=== PATIENT | female | born 1970 | race Asian ===

== ENCOUNTER 2019-11-20 11:26 | Emergency (ER) | payer MEDICAID, SELFPAY ==
--- NOTE | 2019-11-20 11:30 | DI.US_ITS ---
EXAM: US ABDOMEN LIMITED CLINICAL HISTORY: RUQ pain TECHNIQUE: Ultrasound performed using standard protocol. COMPARISON: No exams were available for comparison FINDINGS: The liver is slightly echogenic. There is a echogenicity lesion in the superior left lobe which is not well visualized due to location. There is no biliary dilatation. There is a prominent gallbladd er fold versus Phrygian cap. There is a question based stone versus adenomyosis in this area. There is no overall gallbladder wall thickening or tenderness. There is no right upper quadrant fluid. P ancreas was not ideally seen. The right kidney appears normal. IMPRESSION: Prominent gallbladder fold versus for Phrygian cap. Question of stone versus adenomyomatosis. No ev idence of acute cholecystitis. DATA REPOSITORY:
[2019-11-20 11:34] VITALS: BP 115/67; PULSE 67; RESP 18; TEMP 36.7; O2SAT 95
--- NOTE | 2019-11-20 12:02 | ED.GENADUL_ITS ---
Discharge Plan Disposition Patient Disposition: HOME Condition: Improving Discharge Details Chief Complaint: Abd Prob Clinical Impression: Biliary colic Primary Care Provider: Antonio Jon ED Provider: Philippe Cole Home Meds and New Rx's Prescriptions: No Action Multi For Her 18 mg iron-600 mcg-40 mcg Capsule 1 tab-cap PO DAILY RF: 0 Discharge Instructions Instructions: Abdominal Pain (ED) Additional Instructions: Liquid diet for 24 hours, then may begin a bland diet. Avoid fatty or fried foods. Return if he develop a fever, persistent abdominal pain or vomiting, or any other acute concerns. Medical Decision Making 49-year-old female presents from home with complaint of 2 weeks of right upper quadrant abdominal pain. No significant change with eating. She is not noted a fever no stool changes. Vital signs are normal. She is tender in the right upper quadrant of the abdomen. Differential diagnosis includes pancreatitis, biliary colic, cholecystitis. Patient IV access established, she declined analgesia, she is given fluid bolus and referred for laboratories and ultrasound. She does have a gallstone without evidence of acute cholecystitis or obstruction. Her labs are reassuring. Pain is improved. Consistent with biliary colic. 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 She requests that follow-up instructions be sent to her via email not phone. She understands return precautions to the ER. Lab Data Lab results reviewed: Yes I reviewed the patient's lab results. Labs: Laboratory Results - last 24 hr 11/20/19 11/20/19 11/20/19 12:05 12:20 12:20 WBC 4.29 L RBC 4.54 Hgb 13.7 Hct 41.5 MCV 91.4 MCH 30.2 MCHC 33.0 RDW 12.2 Plt Count 172 MPV 10.5 Immature Gran % 0.2 Neutrophils % 60.0 Lymphocytes % 32.6 Monocytes % 5.8 Eosinophils % 0.9 Basophils % 0.5 Absolute Neutrophils 2.57 Absolute Lymphocytes 1.40 Absolute Monocytes 0.25 Absolute Eosinophils 0.04 Absolute Basophils 0.02 Sodium 139 Potassium 4.5 Chloride 105 Carbon Dioxide 25.9 Anion Gap 8.1 BUN 16 Creatinine 0.66 Estimated GFR/1.73 m2 >= 60.00 Glucose 106 Calcium 8.9 Total Bilirubin 0.4 AST 25 ALT 36 Alkaline Phosphatase 68 Total Protein 7.5 Albumin 3.8 Lipase 190 Urine Color Yellow Urine Clarity Clear Urine pH 6.5 Ur Specific [place] 1.020 Urine Protein Negative Urine Ketones Negative Urine Blood Negative Urine Nitrite Negative Urine Bilirubin Negative Urine Urobilinogen 0.2 Ur Leukocyte Esterase Negative Urine Glucose Negative HPI General Mode of arrival: ambulatory . Date/Time Provider Initiated Documentation: 11/20/19 11:27 . Limitations to Documentation: no limitations . Information obtained by: patient and timber framer helper (Language line timber framer helper used) . History of Present Illness 49 year old F presents to the emergency department with the chief complaint of Right upper quadrant abdominal pain for 2 weeks., described as moderate, Quality is described as dull, and is localized to the abdomen and right. Patient reports no radiation. Patient started experiencing this hour(s) and it has been constant. No relieving factors improve symptom(s), No exacerbating factors reported . Patient notes denies fever/chills and nausea/vomiting. Patient did receive the following treatments prior to arrival, none Related Data Home Medications Medication Instructions Recorded Confirmed [id number]-[id number]-vit K 1 tab-cap PO DAILY 11/20/19 11/20/19 [Multi For Her] Allergies Allergy/AdvReac Type Severity Reaction Status Date / Time No Known Allergies Allergy Unverified 11/20/19 11:54 General Stated Complaint: Abd Prob MARCEL: 3 Review of Systems Narrative: See HPI. Patient denied fever, cough, change to bowel or bladder habits. Exam Narrative Exam Narrative: GEN: awake, alert, Pleasant, well groomed, interactive. HEAD: Normocephalic, atraumatic ENT: Mucous membranes moist, oropharynx unremarkable, External ear exam unremarkable EYES: PERRL, EOMI NECK: Full ROM, no ALICIA, no menigismus CHEST/RESP: Nontender, clear to auscultation bilateral, no wheeze/rhonchi/rales CARDIOVASCULAR: RRR, no murmur, rub amy. 2+ Rad pulse bilateral ABDOMEN: Soft, tender in the right upper quadrant, no mass. +Bowel sounds EXT: Full ROM, no edema, no rash Neuro: Grossly normal neurologic exam, conversant, interactive. Psych: Speech fluent, thoughts congruent, affect normal Course Vital Signs Vital signs: Vital Signs Temperature 36.7 C 11/20/19 11:34 Pulse 67 11/20/19 11:34 Respiratory Rate 18 11/20/19 11:34 Blood Pressure 115/67 11/20/19 11:34 Pulse Oximetry 95 11/20/19 11:34 Temperature 36.7 C 11/20/19 11:34 Temperature Source Temporal Artery Scan 11/20/19 11:34 Pulse 67 11/20/19 11:34 Respiratory Rate 18 11/20/19 11:34 Respiratory Effort Non-Labored 11/20/19 11:55 Blood Pressure 115/67 11/20/19 11:34 Blood Pressure Position Sitting 11/20/19 11:34 Pulse Oximetry 95 11/20/19 11:34 Oxygen Delivery Method Room Air 11/20/19 11:34 Oxygen Flow Rate 0 11/20/19 11:34
[2019-11-20 12:17] LABS: Bilirubin Negative (Negative); Blood Negative (Negative); Clarity Clear (Clear); Glucose Negative (Negative); Ketones Negative (Negative); Leukocyte Esterase Negative (Negative); Nitrite Negative (Negative); Urobilinogen 0.2 EU/dL (Up TO 0.2); pH 6.5 (5-8)
[2019-11-20] MEDS: Normal Saline 1,000 ML 125 ML IV (12:24)
[2019-11-20 12:30] LABS: Abs Immature Grans 0.01 k/cumm (0.0-0.09); Absolute Basophil Count 0.02 k/cumm (0.0-0.2); Absolute Eosinophil Count 0.04 k/cumm (0.0-0.7); Absolute Monocyte Count 0.25 k/cumm (0.11-0.7); Absolute Neutrophil Count 2.57 k/cumm (1.2-6.7); Basophils % 0.5; Eosinophils % 0.9; HCT 41.5 % (36.0-46.0); HGB 13.7 g/dL (12.0-15.5); Immature Grans % 0.2 %; Lymphocytes % 32.6; Mean Corpuscular Hemoglobin 30.2 pg (27.0-33.0); Mean Corpuscular Volume 91.4 fL (80-95); Mean Platelet Volume 10.5 fL (8.0-11.0); Monocytes % 5.8; Platelet Count 172 x1000/uL (130-400); RBC 4.54 m/cumm (4.00-5.20); RBC Distribution Width 12.2 % (11.7-14.6); White Blood Cell Count 4.29 k/cumm (4.4-10.8)
[2019-11-20 12:46] LABS: ALT 36 U/L (14-59); AST 25 U/L (15-37); Albumin 3.8 g/dL (3.4-5.0); Alkaline Phosphatase 68 U/L (46-116); Anion Gap 8.1 mmol/L (3-11); BUN 16 mg/dL (7-18); Bilirubin, Total 0.4 mg/dL (0.2-1.0); CO2 25.9 mmol/L (21.0-32.0); CREATININE 0.66 mg/dL (0.55-1.02); Calcium 8.9 mg/dL (8.5-10.1); Chloride 105 mmol/L (98-107); Glucose 106 mg/dL (74-106); Lipase 190 U/L (73-393); Potassium 4.5 mmol/L (3.5-5.1); Sodium 139 mmol/L (136-145); Total Protein 7.5 g/dL (6.4-8.2)
[2019-11-20 15:03] VITALS: BP 118/68; PULSE 58; RESP 16; TEMP 37; O2SAT 99
--- NOTE | 2019-11-20 15:12 | NUR.NOTE ---
Nursing Note: Referral faxed gen. surgery. Patient prefers Contact by email
== END 2019-11-20 15:02 | disposition home or self-care (01) ==
PROVIDERS: Emergency Provider Emergency Medicine; PCP Naturopath
DX: K80.50 Calculus of bile duct without cholangitis or cholecystitis without obstruction (principal)
CPT/HCPCS: 36415; 80053; 83690; 96360; 96361; 99284; 76705; 81003; 85025; 99283

== ENCOUNTER 2019-12-13 01:30 | Outpatient (CLI) | payer MEDICAID, SELFPAY ==
--- NOTE | 2019-12-13 06:30 | DI.NM_ITS ---
EXAM: NM HEPATOBILIARY CCK GRP CLINICAL HISTORY: RUQ pain,CHRONIC,R10.11,G89.29. TECHNIQUE: Injected dose: 4.8 mCi Tc-99 mebrofenin Initial dynamic images: 60 minutes Post-Gallbladder fillin.02 mcg/kg CCK intravenously over a 15min infusion. Addition images: 45 minute dynamic during CCK administration. COMPARISON: US US ABDOMEN LIMITED from 11/20/2019 FINDINGS: Normal hepatic transit time. Prompt excretion into the small bowel. Prompt excretion into the gallbladder. The gallbladder ejection fraction is 30 percent which is belo w the normal range of greater than 40 percent. IMPRESSION: 1. Low gallbladder ejection fraction of 30 percent. SNM guidelines: Gallbladder visualization should be present by 3 hours. Delayed qmhqaed-pj-shqkt larson sit beyond 60 min raises the suspicion for partial common bile duct (CBD) obstruction. Gallbladder ejection fraction <35% has a good correlation with acalculous disease (i.e., chronic acal culous cholecystitis, cystic duct syndrome, sphincter of Oddi disease).
[2019-12-13] MEDS: Sincalide 5 MCG VIAL 1 MCG IJ (11:39)
== END 2019-12-13 01:50 ==
PROVIDERS: PCP Naturopath; Visit Provider Surgery
DX: R10.11 Right upper quadrant pain (principal); G89.29 Other chronic pain; K82.8 Other specified diseases of gallbladder
CPT/HCPCS: 78227

== ENCOUNTER 2019-12-22 03:39 | Outpatient (CLI) | payer MEDICAID, SELFPAY ==
[2019-12-23 12:28] LABS: COVID-19 RT-PCR Result NEGATIVE (Negative)
== END 2019-12-22 03:59 ==
PROVIDERS: PCP Naturopath; Visit Provider Surgery
DX: Z11.59 Encounter for screening for other viral diseases (principal); Z01.818 Encounter for other preprocedural examination
CPT/HCPCS: U0003

== ENCOUNTER 2019-12-26 07:00 | Day surgery (SDC) | payer MEDICAID, SELFPAY ==
[2019-12-26 07:10] VITALS: BP 126/71; PULSE 64; RESP 16; TEMP 36.4; O2SAT 99
--- NOTE | 2019-12-26 07:52 | W.PM.DSUDISC ---
Discharge Plan Disposition Patient Disposition: HOME Condition: Good Discharge Details Reason For Visit: EGD Attending Provider: Annia Felder Primary Care Provider: Antonio Jon Home Meds and New Rx's Prescriptions: Continued coenzyme Q10 [Co Q-10] 10 mg capsule 10 mg PO ONCE RF: 0 omeprazole magnesium [Acid Soyfreeze Operator (omeprazole)] 20 mg capsule,delayed release(DR/EC) 20 mg PO DAILY Qty: 14 RF: 0 Multi For Her 18 mg iron-600 mcg-40 mcg Capsule 1 tab-cap PO DAILY RF: 0 Discharge Instructions Additional Instructions: Findings: Your upper endoscopy was normal. No ulcers were found. Follow up: We will discuss possible gallbladder surgery. Please call if you develop: fevers >101.5 Nausea or Vomiting Abdominal pain that is not transient DAY SURGERY UNIT POST EGD INSTRUCTIONS 1. Because there will be medication in your system for the next 24 hours, you may feel a little sleepy. Your coordination will be affected. Therefore: a. Do not drive or operate dangerous equipment for 24 hours. b. Do not drink alcohol beverages for 24 hours (not even beer). c. Plan to go home and rest for the day. 2. Generally there are no restrictions on your activity after a day or so has gone by, but you may feel a bit fatigued for a few days. 3 After you arrive home you may have a light meal and return to a normal diet as you can tolerate it without feeling sick to your stomach. 4. After surgery, you may feel pain or discomfort. This should be only transient, but if it persists please contact your doctor. 5. If there are any questions regarding the findings of your procedure, please feel free to contact your doctor. 6. If you are unable to contact your doctor with a problem, contact the hospital at [phone]. 7. Continue all your regular medications unless directed otherwise. I understand the above instructions and have no questions. Signature of Patient or Responsible Adult Escort Date/Time Name of Responsible Adult Escort Signature of Nurse Date/Time Activity:: Activity as Tolerated Diet:: As Tolerated Discharge Orders Discharge Orders: Discharge Order (Routine); Ordered 12/26/19 Ordered By: Annia Felder DS: Diagnosis Discharge Diagnosis (1) Chronic RUQ pain: Status: Acute
--- NOTE | 2019-12-26 07:53 | W.PM.ENDDOP ---
Date of service: 12/26/19 Time of Service: 08:43 Endoscopy Report DATE OF PROCEDURE: 12/26/19 PRE-OP DIAGNOSIS: RUQ pain POST-OP DIAGNOSIS: other (Normal EGD) PROCEDURE: EGD SURGEON: Annia Felder ANESTHESIA: MAC INDICATIONS: This 49 year old woman presents with RUQ pain that is slightly improved with eating. She reports a history of PUD. US and HIDA scan are equivocal for gallbladder disease. PROCEDURE DESCRIPTION: The patient was placed in the left lateral position and propofol titrated to sedation. The endoscope was advanced into the esophagus under direct visualization. The scope was passed through the stomach and into the duodenum. There was no duodenitis or ulceration noted. Biopsies were taken from the second portion of the duodenum to evaluate for celiac disease. The stomach itself was normal including on retroflexed view of the fundus and lesser curvature. Routine biopsies were taken from the gastric antrum. The GE junction was inspected and showed no significant stricture, inflammation, masses or Barretts. The scope was slowly withdrawn with no other esophageal lesions found. The patient tolerated the procedure well and was stable to recovery. Will have further discussion with the patient regarding gallbladder surgery.
[2019-12-26] MEDS: Lactated Ringers 1,000 ML 80 ML IV (08:03)
--- NOTE | 2019-12-26 08:23 | BOWEL_PTH ---
PATIENT: AAYUSH WOLFE LOC: [facility] U#:[id number] AGE/SX: 49/F ROOM: RE12/26/[address]: Annia Felder MD : [id number] BED: DIS: 12/26/2019 SPEC #: [id number] RECD: 12/26/19 09:37 STATUS: TATA REQ #: [id number] HIRAL: 12/26/19 08:[address]: Annia Felder DEPT: Surgical Specimen RECD BY: Deisy Pérez ENTERED: 12/26/19 09:38 SP TYPE: Bowel OTHR DR: Antonio Jon Tissues: 1 - BIOPSY BOWEL 2 - STOMACH BIOPSY Procedures: GROSS AND MICRO LEVEL 4 IMMUNOPEROXIDASE STAIN Comments: [id number]
[2019-12-26 09:15] VITALS: BP 120/84; PULSE 56; RESP 16; TEMP 35.8; O2SAT 100
== END 2019-12-26 10:05 | disposition home or self-care (01) ==
PROVIDERS: PCP Naturopath; Visit Provider Surgery
PROC: 0DJ68ZZ Inspection of Stomach, Via Natural or Artificial Opening Endoscopic (ICD-10-PCS; CPT 43235; principal; 2019-12-26 08:15)
DX: K29.50 Unspecified chronic gastritis without bleeding (principal); R10.11 Right upper quadrant pain
CPT/HCPCS: 43239; 88305; 88361; J2001; J2704

== ENCOUNTER 2020-01-25 02:37 | Outpatient (CLI) | payer MEDICAID, SELFPAY ==
--- NOTE | 2020-01-25 07:02 | DI.CT_ITS ---
EXAM: CT ABDOMEN PELVIS W CLINICAL HISTORY: RUQ pain,R10.11. TECHNIQUE: Imaging Protocol: Axial computed tomography images with coronal and sagittal reformatted images were created and reviewed CONTRAST MATERIAL: Intravenous: Omnipaque 350 Contrast volume:100 ml Oral: yes / COMPARISON: US US ABDOMEN LIMITED from 11/20/2019 NM NM HEPATOBILIARY CCK GRP from 12/13/2019 FINDINGS: ABDOMEN: Lung Bases: Mild respiratory motion and dependent changes Liver: Normal density. A few small cysts are noted. No suspicious masses. Gallbladder and biliary tract: No radiodense calculus or dilation. Prominent gallbladder fold near th e fundus. Pancreas: Normal density, no abnormal calcifications or inflammatory process. Spleen: Normal. Kidneys: Normal size, contour and axis. No radiodense stones or obstructive uropathy. No masses seen. Adrenal glands: No masses seen. Abdominal Aorta: Abdominal portion non-dilated. PELVIS: Bladder: Symmetric distention, no gross wall thickening. Bowel: No obstruction or bowel wall thickening. Normal appendix. Moderate quantity of stool. Peritoneal cavity: No ascites, collection or mesenteric inflammatory response. Bones: Bilateral L5 spondylolysis and slight spondylolisthesis. Minimal endplate osteophytes. Reproductive organs: Mildly enlarged uterus with fibroids. Lymph nodes: Unremarkable. Impression: Prominent gallbladder fold versus Phrygian cap. No stones or wall thickening are visible. No biliar y dilatation. Uterine fibroids. RADIATION DOSE DELIVERED: 798.7mGy.cm Total DLP DATA REPOSITORY: All CT scans at this facility are submitted to the National Radiology Data Registry (NRDR) Dose Index Registry (DIR) with the [employer] (A[employer]). RADIATION OPTIMIZATION: All CT scans at this facility use at least one of these dose optimization te chniques: automated exposure control; mA and/or kV adjustment per patient size (includes targeted exa ms where dose is matched to clinical indication); or iterative reconstruction.
[2020-01-25] MEDS: Breeza Beverage 473 ML BTL PO ×2 (08:05→08:07)
[2020-01-25] MEDS: Omnipaque 350 MG/ML 50 ML BTL PO (08:06)
[2020-01-25] MEDS: Normal Saline - Diluent 50 ML VIAL IV (08:33)
[2020-01-25] MEDS: Omnipaque 350 MG/ML 100 ML BTL IV (08:33)
== END 2020-01-25 02:57 ==
PROVIDERS: PCP Naturopath; Visit Provider Surgery
DX: R10.11 Right upper quadrant pain (principal); D25.9 Leiomyoma of uterus, unspecified
CPT/HCPCS: 74177; J3490; Q9967